=== PATIENT | female | born 1960 | race African-American/Black ===

== ENCOUNTER 2022-11-30 13:06 | Emergency (ER) | payer SELFPAY ==
[~2022-11-30] VITALS: Ht 185.4 cm; Wt 140.6 kg
[2022-11-30] MEDS ORDERED: ATEN50TA2 PO (13:16)
[2022-11-30] MEDS ORDERED: IBUPROFEN 800 MG TAB PO ONE (16:25)
[2022-11-30] MEDS ORDERED: IBUP80TA PO (17:35)
[2022-11-30] MEDS ORDERED: ACET650T61 PO (17:35)
[2022-11-30 17:41] VITALS: BP 140/65
== END 2022-11-30 17:54 | disposition home or self-care (01) ==
LOC: M ED 13:06
DX: M50.322 Other cervical disc degeneration at C5-C6 level (principal); M50.31 Other cervical disc degeneration, high cervical region; M43.12 Spondylolisthesis, cervical region; R20.2 Paresthesia of skin; I10 Essential (primary) hypertension; M54.30 Sciatica, unspecified side; M16.11 Unilateral primary osteoarthritis, right hip; Z79.810 Long term (current) use of selective estrogen receptor modulators (SERMs)

== ENCOUNTER → 2022-12-12 | Outpatient (CLI) | payer SELFPAY ==
[~2022-12-12] MED LIST: ACET650T61 PO; ATEN50TA2 PO; IBUP80TA PO
== END ==
LOC: M SOG 14:43
PROVIDERS: ATTEND Orthopaedic Surgery
DX: M25.551 Pain in right hip (principal)